=== PATIENT | female | born 1940 | race Two or more races ===

== ENCOUNTER 2025-01-22 06:58 | Day surgery (SDC) | payer OTHER ==
[2025-01-22] MEDS ORDERED: FLUMAZENIL 0.5 MG/5 ML ML IV STA (11:04)
[2025-01-22] MEDS ORDERED: MIDAZOLAM HCL 2 MG/2 ML VIAL IV ONE (11:15)
[2025-01-22] MEDS ORDERED: DIPHENHYDRAMINE HCL 50 MG/ML VIAL 1ML IV ONE (11:15)
[2025-01-22] MEDS ORDERED: fentaNYL CITRATE 50 MCG/ML AMPUL IV PUSH ONE (11:15)
== END 2025-01-22 12:30 | disposition home or self-care (01) ==
LOC: AMB-ENDOS 06:58
PROVIDERS: ATTEND Surgery
DX: D12.5 Benign neoplasm of sigmoid colon (principal); K57.30 Diverticulosis of large intestine without perforation or abscess without bleeding; K63.5 Polyp of colon